=== PATIENT | female | born 1945 | race Caucasian/White ===

== ENCOUNTER → 2016-09-19 | Outpatient (CLI) | payer MEDICARE, OTHER ==
[~2016-09-19] MED LIST: AMARYL 2MG TABLE2 MG PO; EUCERIN CREME120 GM TP; FERROUS SULFAT325 MG PO; FISH OIL 1,0001 EAC4 PO; LEVAQUIN750 MG PO; NORVASC 5 MG TAB5 MG PO; PRILOSEC20 MG PO; PROAIR HFA8.5 GM INH; RESTASIS1 EACH OU; SYNTHROID150 MCG PO; TYLENOL 325MG325 MG PO; VITAMIN B-121000 MC3 PO; VITAMIN C 500500 MG PO
== END ==
LOC: US 09:57
DX: R59.0 Localized enlarged lymph nodes (principal); Z88.8 Allergy status to other drugs, medicaments and biological substances
CPT/HCPCS: 76881

== ENCOUNTER 2021-02-08 10:11 | Inpatient (IN) | payer MEDICARE, OTHER ==
[~2021-02-08] VITALS: Ht 157.5 cm; Wt 100.2 kg
[~2021-02-08 10:11] MED LIST changes: -AMARYL 2MG TABLE2 MG PO
[2021-02-08 13:51] LABS: HEMOGLOBIN 11.6 gm/dl (12.3-15.3); RED BLOOD COUNT 4.16 M/UL (4.00-5.10); WHITE BLOOD COUNT 9.6 K/UL (4.5-11.0)
[2021-02-08] MEDS ORDERED: FUROSEMIDE20 MG PO (15:09)
[2021-02-08] MEDS ORDERED: COLCHICINE0.6 MG PO (15:11)
[2021-02-08] MEDS ORDERED: METOPROLOL SUCC25 MG PO (15:11)
[2021-02-08] MEDS ORDERED: RESTASIS 0.05%1 EACH OU (15:13)
[2021-02-08] MEDS ORDERED: MULTIVITAMIN1 EACH PO (15:25)
[2021-02-08] MEDS ORDERED: CHERRY TART PO (15:27)
[2021-02-08] MEDS ORDERED: AMARYL1 MG PO (16:56)
[2021-02-09 03:42] LABS: WHITE BLOOD COUNT 7.5 K/UL (4.5-11.0)
[2021-02-09 21:22] LABS: HEMOGLOBIN 9.8 gm/dl (12.3-15.3)
[2021-02-09 21:28] LABS: RED BLOOD COUNT 3.45 M/UL (4.00-5.10); WHITE BLOOD COUNT 12.3 K/UL (4.5-11.0)
[2021-02-10 07:14] LABS: HEMOGLOBIN 8.5 gm/dl (12.3-15.3); RED BLOOD COUNT 3.2 M/UL (4.00-5.10); WHITE BLOOD COUNT 10.6 K/UL (4.5-11.0)
[2021-02-11 02:41] LABS: HEMOGLOBIN 7.6 gm/dl (12.3-15.3)
[2021-02-11 02:45] LABS: RED BLOOD COUNT 2.77 M/UL (4.00-5.10); WHITE BLOOD COUNT 7.1 K/UL (4.5-11.0)
[2021-02-12 02:36] LABS: HEMOGLOBIN 7.4 gm/dl (12.3-15.3); RED BLOOD COUNT 2.67 M/UL (4.00-5.10); WHITE BLOOD COUNT 7.6 K/UL (4.5-11.0)
[2021-02-12] MEDS ORDERED: FERROUS SULFAT324 MG PO (10:22)
[2021-02-12] MEDS ORDERED: PERCOCET 5/325 T1 EA PO (10:22)
[2021-02-12] MEDS ORDERED: GLUCOPHAGE 500500 MG PO (10:40)
--- NOTE | 2021-02-12 15:15 | NUR ---
spoke with Mary, from [facility]. report given
== END 2021-02-12 14:45 | disposition home health service (06) | DRG 460 ==
LOC: ER1 10:11 → CCU 13:30 → M/S 13:30 → CDU 13:30 → M/S 18:34 → CCU 02-09 17:38 → PROG CARE 02-10 10:07
PROVIDERS: Emergency Medicine; Internal Medicine; Orthopaedic Surgery; Physician Assistant; Physician Assistant Medical; ADMIT Internal Medicine Infectious Disease
PROC: 0RG70K1 Fusion of 2 to 7 Thoracic Vertebral Joints with Nonautologous Tissue Substitute, Posterior Approach, Posterior Column, Open Approach (ICD-10-PCS; principal; 2021-02-09 11:30)
DX: S22.069A Unspecified fracture of T7-T8 vertebra, initial encounter for closed fracture (principal); Z68.41 Body mass index [BMI] 40.0-44.9, adult; D62 Acute posthemorrhagic anemia; Z20.822 Contact with and (suspected) exposure to COVID-19; W18.30XA Fall on same level, unspecified, initial encounter; Y93.01 Activity, walking, marching and hiking; I12.9 Hypertensive chronic kidney disease with stage 1 through stage 4 chronic kidney disease, or unspecified chronic kidney disease; E11.22 Type 2 diabetes mellitus with diabetic chronic kidney disease; N18.30 Chronic kidney disease, stage 3 unspecified; E03.9 Hypothyroidism, unspecified; M10.9 Gout, unspecified; E66.01 Morbid (severe) obesity due to excess calories; M43.24 Fusion of spine, thoracic region; I10 Essential (primary) hypertension; M19.90 Unspecified osteoarthritis, unspecified site; M81.0 Age-related osteoporosis without current pathological fracture; D50.9 Iron deficiency anemia, unspecified; Y92.008 Other place in unspecified non-institutional (private) residence as the place of occurrence of the external cause; Z85.828 Personal history of other malignant neoplasm of skin; Z79.84 Long term (current) use of oral hypoglycemic drugs; Z79.890 Hormone replacement therapy; Z79.899 Other long term (current) drug therapy
CPT/HCPCS: 36415; 71045; 72072; 72125; 72128; 72131; 72146; 73522; 76000; 80048; 80053; 81001; 82962; 83540; 83550; 83735; 85025; 85610; 86850; 86900; 86901; 93005; 97110-GP-CQ; 97162; 97166; 97530-GP-CQ; 99285; C1713; C1762; G0378; J0690; J1170; J1650; J1756; J2001; J2270; J2704; J3010; J3370; J7030; J7040; J7120; P9047; U0002